=== PATIENT | female | born 1935 | race Caucasian/White ===

== ENCOUNTER 2016-07-27 20:15 | Emergency (ER) | payer MEDICARE, OTHER ==
[~2016-07-27] VITALS: Ht 167.6 cm; Wt 75.0 kg
[2016-07-27 20:16] VITALS: BP 137/106; PULSE 91; RESP 16; TEMP 97.7; O2SAT 99
--- NOTE | 2016-07-27 20:26 | PD ---
Physical Exam Time Seen by Provider: 20:25 Narrative 80 y/o female presents after tripping on the curb and falling hitting her head on the ground. Complains of occipital scalp laceration. She has pain associated with this. denies other injury. Denies anticoagulant use. vss Seen at triage desk. Awaiting bed placement. Data Data Last Documented VS Vital Signs Date Time Temp Pulse Resp B/P Pulse Ox O2 Delivery O2 Flow Rate FiO2 07/27/16 20:16 97.7 91 16 137/106 99 Room Air [facility] Medical Record Reviewed: Yes Supervised Visit with PORSHA: Zhou Porter July 27, 2016 20:26
[2016-07-27] MEDS ORDERED: ZOCO20TA PO (20:39)
[2016-07-27] MEDS ORDERED: MONT10TA2 PO (20:39)
[2016-07-27] MEDS ORDERED: NEUR300C PO (20:39)
[2016-07-27] MEDS ORDERED: CLON1TAB PO (20:39)
[2016-07-27] MEDS ORDERED: BENI5TAB4 PO (20:39)
[2016-07-27] MEDS ORDERED: AMLO5 PO (20:39)
[2016-07-27] MEDS ORDERED: VALT500T PO (20:39)
[2016-07-27] MEDS ORDERED: BENA40TA PO (20:39)
[2016-07-27] MEDS ORDERED: NEXI40CA PO (20:39)
[2016-07-27] MEDS ORDERED: CYMB60CA PO (20:39)
[2016-07-27] MEDS ORDERED: WELC625T2 PO (20:39)
[2016-07-27] MEDS ORDERED: EVIS60TA PO (20:39)
[2016-07-27] MEDS ORDERED: TETANUS/DIPHTHERIA TOXOID ADULT 0.5 ML VIAL IM ONE (20:45)
--- NOTE | 2016-07-27 20:51 | PD ---
HPI Chief Complaint: Laceration/Skin Injury Time Seen by Provider: 20:46 Travel History International Travel<30 days: No Contact w/Intl Traveler<30days: No Traveled to known affect area: No History of Present Illness HPI 80-year-old white female presents to emergency department for evaluation of a trip and fall. The patient states that she has balance issues. She tripped on the curb falling back striking her head. She did not lose consciousness. She denies syncope. No nausea vomiting. No neck or back pain. No numbness, tingling or focal weakness. Unsure of last tetanus shot. She came in at the recommendation of the paramedics for scanning of her head. She is accompanied by her significant other. [facility]LY [facility] Past Medical History Narrative Medical Hypertension, hypercholesterolemia, seasonal allergies, chronic gait disturbance , meningioma of the brain Immunizations Current: Yes Tetanus Vaccination: > 5 Years Influenza Vaccination: No ?: Not Social History Alcohol Use: No Tobacco Use: No Substance Use: No Allergies-Medications (Allergen,Severity, Reaction): Coded Allergies: No Known Allergies (Unverified , 07/27/16) Reported Meds & Prescriptions Reported Meds & Active Scripts Active Reported Welchol (Colesevelam HCl) 625 Mg Tab 1,875 Mg PO BID Nexium (Esomeprazole DR) 40 Mg Capdr 40 Mg PO DAILY Clonazepam 1 Mg Tab 1 Mg PO HS Cymbalta DR (Duloxetine HCl) 60 Mg Capdr 60 Mg PO DAILY Singulair (Montelukast Sodium) 10 Mg Tab 10 Mg PO HS Benazepril (Benazepril HCl) 40 Mg Tab 40 Mg PO DAILY Zocor (Simvastatin) 20 Mg Tab 20 Mg PO DAILY Benicar (Olmesartan) 5 Mg Tab 5 Mg PO DAILY Norvasc (Amlodipine Besylate) 5 Mg Tab 5 Mg PO DAILY Evista (Raloxifene HCl) 60 Mg Tab 60 Mg PO DAILY Valtrex (Valacyclovir HCl) 500 Mg Tab 500 Mg PO BID Neurontin (Gabapentin) 300 Mg Cap 300 Mg PO TID Review of Systems Except as stated in HPI: all other systems reviewed are Neg General / Constitutional: No: Fever, Chills Eyes: No: Diploplia, Blurred Vision HENT: No: Headaches, Neck Stiffness, Neck Pain Cardiovascular: No: Chest Pain or Discomfort, Palpitations Respiratory: No: Cough, Shortness of Breath Gastrointestinal: No: Nausea, Vomiting Genitourinary: No: Dysuria, Hematuria Musculoskeletal: Positive: Arthralgias, Pain, No: Limited ROM, Weakness Skin: No Rash, No Lesions Neurologic: Positive: Dizziness, Coordination Problem, No: Weakness, Syncope, Focal Abnormalities, Paresthesia Physical Exam Narrative GENERAL: Well-developed, well-nourished in no apparent distress. Nontoxic appearing. HEAD: Normocephalic, patient has abrasion contusion to the posterior occiput. No suturable laceration.. EYES: Pupils equal round and reactive. Extraocular motions intact. No scleral icterus. No injection or drainage. ENT: Nose clear. Throat without erythema, tonsillar hypertrophy or exudate. Uvula midline. Airway patent. NECK: Trachea midline. Supple, nontender, moves head freely. No central bony tenderness or spasm. CARDIOVASCULAR: Regular rate and rhythm without murmurs, gallops, or rubs. RESPIRATORY: Clear to auscultation. Breath sounds equal bilaterally. No wheezes , rales, or rhonchi. GASTROINTESTINAL: Abdomen soft, non-tender, nondistended. No hepato-splenomegaly , or palpable masses. No guarding. EXTREMITIES: No clubbing, cyanosis, or edema. No joint tenderness. Patient has multiple areas of bruising in various stages of healing to the lower extremity is. She has a avulsion laceration to the right lower pretibial region which appears to be several days old and in the process of healing. BACK: Nontender without deformity. No flank tenderness. NEUROLOGICAL: Awake, alert and oriented x 3 .Cranial nerves grossly intact. Motor and sensory grossly within normal limits. Normal speech. Data Data Last Documented VS Vital Signs Date Time Temp Pulse Resp B/P Pulse Ox O2 Delivery O2 Flow Rate FiO2 07/27/16 20:16 97.7 91 16 137/[address] Brain W/O Iv Contrast(Rout) (07/27/16 20:35) Ct Cerv Spine W/O Contrast (07/27/16 20:35) Tetanus/Diphtheria Tox Adult (Tetanus/Di (07/27/16 20:45) MDM Medical Decision Making Medical Screen Exam Complete: Yes Emergency Medical Condition: Yes Medical Record Reviewed: Yes Interpretation(s) CT brain: Patient has a extra axial mass most consistent with a meningioma. The patient does have a history of a meningioma. I do not believe additional imaging is indicated at this time. Last [address] 07/27/162034 Signed Impressions: Service Date/Time: Wednesday, July 27, 2016 20:53 - CONCLUSION: 1. No bleed or other acute intracranial abnormality. 2. High parietal scalp contusion/laceration. 3. Left parietal extra-axial mass that is most likely a meningioma. Patient has a pacemaker. A contrast-enhanced head CT is recommended ; technologist, please do sagittal and coronal reconstructions. Deandre Webb MD C-spine: Negative for acute fracture. Positive degenerative changes. Differential Diagnosis MDM: High Differential diagnoses: Fracture, sprain, strain, dislocation, contusion, neurovascular injury Narrative Course Patient's wound is cleansed by the nursing staff. CAT scan of the head, and neck and been performed. Diagnosis Primary Impression: Head contusion Qualified Code: S00.03XA - Contusion of scalp, initial encounter Additional Impression: Abrasions of multiple sites Patient Instructions: General Instructions Additional Instructions: Rest. Head precautions. Tylenol for pain. Ice packs. Daily wound care with soap, water, Neosporin. Avoid alcohol. Avoid all sedating or intoxicating substances. Recheck with your physician within 1-2 days. Return to the ER for any problems. Med/Other Pt SpecificInfo: Wound Care Disposition: 01 DISCHARGE HOME Condition: Stable Sincere Jackson July 27, 2016 20:51
--- NOTE | 2016-07-27 21:21 | RADRPT ---
EXAM DATE/TIME: 07/27/2016 20:53 [facility] COMPARISON: No previous studies available for comparison. INDICATIONS : Fell hitting back of head. RADIATION DOSE: 48.96 CTDIvol (mGy) MEDICAL HISTORY : Cardiovascular disease. SURGICAL HISTORY : Pacemaker. ENCOUNTER: Initial ACUITY: 1 day PAIN SCALE: 6/10 LOCATION: cranial TECHNIQUE: Multiple contiguous axial images were obtained of the head. Using automated exposure control and adj ustment of the mA and/or kV according to patient size, radiation dose was kept as low as reasonably a chievable to obtain optimal diagnostic quality images. FINDINGS: No intracranial hemorrhage demonstrated. A left high parietal mass is present that appears to be intr a-axial. It is well-circumscribed and measures approximately 2.8 cm in size. This is most likely a me ningioma. No other mass lesions are demonstrated. There is no midline shift. No evidence of an acute ische anum event. Patient has a high parietal scalp contusion and laceration. No fracture demonstrated. CONCLUSION: 1. No bleed or other acute intracranial abnormality. 2. High parietal scalp contusion/laceration. 3. Left parietal extra-axial mass that is most likely a meningioma. Patient has a pacemaker. A contra st-enhanced head CT is recommended; technologist, please do sagittal and coronal reconstructions. Deandre Webb MD on July 27, 2016 at 21:13 Board Certified Radiologist. This report was verified electronically.
--- NOTE | 2016-07-27 21:29 | RADRPT ---
EXAM DATE/TIME: 07/27/2016 20:53 [facility] COMPARISON: No previous studies available for comparison. INDICATIONS : Fell hitting back of head. Neck pain. RADIATION DOSE: 40.54 CTDIvol (mGy) MEDICAL HISTORY : Cardiovascular disease. SURGICAL HISTORY : Pacemaker. ENCOUNTER: Initial ACUITY: 1 day PAIN SCALE: 6/10 LOCATION: neck TECHNIQUE: Volumetric scanning of the cervical spine was performed. Multiplanar reconstructions in the sagittal, coronal and oblique axial planes were performed. Using automated exposure control and adjustment o f the mA and/or kV according to patient size, radiation dose was kept as low as reasonably achievable to obtain optimal diagnostic quality images. FINDINGS: Mild degenerative appearing kyphosis centered around C4 noted. A couple millimeters of degenerative a ppearing anterolisthesis seen at C3/C4. No fracture or acute appearing malalignment demonstrated. 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 Moderate to severe disc space narrowing seen at C3/C4, C4/C5 and C5/C6 with small, broad posterior di sc osteophyte complexes and moderate bilateral uncovertebral and facet osteoarthritis. No acute soft tissue abnormality demonstrated. Biapical pleural thickening/scarring noted including a n elongated nodular area in the right medial lung apex. Patulous appearing and air-filled esophagus s een at the level of the thoracic inlet. CONCLUSION: 1. No fracture or acute appearing malalignment of the cervical spine. 2. Degenerative changes as above. 3. Biapical pleural thickening and scarring. Elongated nodular area on the right. Followup noncontras t chest CT recommended in 4-6 months. 4. Nonspecific patulous air-filled esophagus. Deandre Webb MD on July 27, 2016 at 21:23 Board Certified Radiologist. This report was verified electronically.
== END 2016-07-27 21:48 | disposition home or self-care (01) ==
LOC: NEPK 20:15
DX: S01.01XA Laceration without foreign body of scalp, initial encounter (principal); T14.8 Other injury of unspecified body region; Z23 Encounter for immunization; S00.03XA Contusion of scalp, initial encounter; Z95.0 Presence of cardiac pacemaker; W01.10XA Fall on same level from slipping, tripping and stumbling with subsequent striking against unspecified object, initial encounter; Y93.9 Activity, unspecified; Y92.9 Unspecified place or not applicable; Y99.9 Unspecified external cause status
CPT/HCPCS: 70450; 72125; 90471; 90714